=== PATIENT | male | born 1975 | race Caucasian/White ===

== ENCOUNTER 2017-01-24 06:24 | Emergency (ER) | payer OTHER ==
--- NOTE | ~2017-01-24 | CR210 ---
[facility] A Service of [facility] RADIOLOGY TEXT RESULTS PATIENT: TERELL HART LOCATION: SED : 77 UNIT #: [id number] AGE: [address]: Bairon Rocha MD SEX: M ORDER DR: [id number] [place] [id number] E MR#: [id number] Acc #: [id number] NAME: TERELL HART : 1975 SEX: M STUDY DATE/TIME: 01/24/2017 5:27 UNIT: SED ROOM: STUDY DESCRIPTION: CR Ribs Uni 2 View W PA Ch Lt Attending Physician: Bairon Rocha M.D. Ordering Physician: Bairon Rocha M.D. Primary Care Physician: Primary Care Physician No MEDICAL IMAGING REPORT This report is preliminary unless electronic signature is present. EXAM Frontal chest and left rib series 01/24/17 INDICATIONS Acute pain in the left mid rib area since yesterday. Nephew gave him a bear hug. TECHNIQUE Frontal chest and 3 views left ribs. COMPARISON Comparison chest x-ray 07/20/2012 FINDINGS Cardiac silhouette is within normal limits. Vascularity unremarkable. There is no effusion or dense consolidation. No pneumothorax. No distinct rib fracture. IMPRESSION 1. Negative frontal chest for active disease. Low lung volumes. No pneumothorax. 2. No distinct rib fracture. Dictated by... Richard Diamond M.D. THIS IS AN ELECTRONICALLY VERIFIED REPORT Richard Diamond M.D. at 01/24/2017 10:00 PM ARCHANA/hcu [facility] A Service [facility] RADIOLOGY TEXT RESULTS PATIENT: TERELL HART LOCATION: SED : 77 UNIT #: [id number] AGE: [address]: Bairon Rocha MD SEX: M ORDER DR: TD: 01/24/2017 10:53 JOB #: [id number] MEDICAL IMAGING REPORT Page 1 of 1
[~2017-01-24 06:24] MED LIST: .; BLOOD PRESSURE MED; CHOLESTEROL MED; CLEOCIN HCL300 M1 PO; FAMOTIDINE PO; FISH OIL 1,0001 CAP PO; FLEXERIL10 M1 PO; GABAPENTIN600 MG PO; LANTUS100 U/ML SUBQ; LEVEMIR INSULIN SQ; LIPITOR PO; LISINOPRIL PO; LOPID600 MG PO; LOPRESSOR PO; LOTREL 10/20 MG1 CAP PO; NEURONTIN600 MG PO; NO MEDICATIONS; NORVASC PO; NOVOLOG100 U/M2; PREDNISONE PO; REGLAN PO; VICODIN PO; VISTARIL PO; VOLTAREN75 MG PO; ZESTRIL10 M1 PO
== END 2017-01-24 06:30 | disposition home or self-care (01) ==
LOC: SED 06:24
DX: S20.212A Contusion of left front wall of thorax, initial encounter (principal); L02.213 Cutaneous abscess of chest wall; E11.9 Type 2 diabetes mellitus without complications; F17.200 Nicotine dependence, unspecified, uncomplicated; X58.XXXA Exposure to other specified factors, initial encounter; Y92.009 Unspecified place in unspecified non-institutional (private) residence as the place of occurrence of the external cause
CPT/HCPCS: 10060; 71100; 82947; 99283